=== PATIENT | female | born 2005 | race Caucasian/White ===

== ENCOUNTER 2025-02-04 04:12 | Emergency (ER) | payer BC, SELFPAY ==
[2025-02-04] VITALS (7 sets, daily range): BP systolic 93–136; BP diastolic 54–84
[2025-02-04 04:48] LABS: HCG, Serum Qualitative Screen Negative
[2025-02-04 04:50] LABS: Hematocrit 35.4 % (37.0-47.0); Hemoglobin 10.8 g/dL (12.0-16.0); Mean Corp Hgb Conc. 30.5 g/dL (33.0-37.0); Mean Corpuscular Hgb 23.7 pg (27.0-31.0); Mean Corpuscular Volume 77.8 fL (81.0-99.0); Mean Platelet Volume 13.5 fL (7.4-10.4); Platelet Count 211 10^3/uL (130-400); Red Blood Cell Count 4.55 10^6/uL (4.20-5.40); Red Cell Dist. Width 16.1 % (11.5-14.5)
[2025-02-04 04:52] LABS: Blood Urea Nitrogen 11 mg/dl (7-17); Calcium 9.2 mg/dl (8.4-10.2); Carbon Dioxide 24 mmol/L (22-30); Chloride 113 mmol/L (98-107); Glucose 99 mg/dl (70-99); Potassium 4.2 mmol/L (3.5-5.1); Sodium 145 mmol/L (135-145); eGFR > 60.00
--- NOTE | 2025-02-04 09:10 | ED.GENMED ---
History of Present Illness
General
Chief Complaint: Vomiting Blood
Source: patient
Exam Limitations: none
Time Seen by Provider: 02/04/25 08:07
Nursing documentation reviewed up to this point in time: agreed with
History of Present Illness
History of Present Illness:
see MDM
Past History
Past History
ED Past Medical History: Psychiatric
ED Past Surgical History: None
Social History
Tobacco: Non-smoker
Alcohol: Other
Drug: Other
Review of Systems
Review of Systems
Allergies reviewed?: Yes
All Other Systems: Not applicable
Phy Exam
Physical Exam
Physical Exam:
GENERAL: sleeping soundly; woken up and in no distress
EYE: pupils equal and reactive
NECK: Supple
ENT: o/p clr, mmm.
CARDIAC: Regular rate and rhythm .
LUNGS: Clear breath sounds bilaterally, no acute respiratory distress, no wheezes/rales/rhonchi
ABDOMEN: Soft, without focal tenderness, no r/g, no cvat, normal bowel sounds
NEUROLOGICAL: Alert and oriented, no focal neuro deficits
SKIN: Warm and dry, skin intact.
MUSCULOSKELETAL: No edema, well perfused. neg noah's sign
PSYCH: Normal and appropriate interaction.
Course
Orders/Labs/Results
Orders:
Orders
02/04/25 04:17
Test Result ONCE
02/04/25 04:25
Complete Blood Count/No Diff Urgent
Comprehensive Metabolic Panel Urgent
Comment: ADD
Direct Bilirubin Urgent
Comment: ADD
HCG, Serum Qualitative Screen Urgent
Lipase Urgent
Comment: ADD
02/04/25 08:50
Electrocardiogram (*1) Urgent
Reason for Study: Abdominal Pain
EKG- Treatment ONCE
02/04/25 09:10
Add On- LAB Urgent
Tests Added?: LFT, LIPASE
Abnormal Lab Results
02/04/25
04:25
Hgb 10.8 L g/dL
(12.0-16.0)
Hct 35.4 L %
(37.0-47.0)
MCV 77.8 L fL
(81.0-99.0)
MCH 23.7 L pg
(27.0-31.0)
MCHC 30.5 L g/dL
(33.0-37.0)
RDW 16.1 H %
(11.5-14.5)
MPV 13.5 H fL
(7.4-10.4)
Chloride 113 H mmol/L
(98-107)
AST 38 H U/L
(14-36)
ALT 58 H U/L
(0-35)
02/04/25 04:25
02/04/25 04:25
Vital Signs
Initial and Last Documented VS:
Initial Vital Signs
Temp Pulse Resp BP Pulse Ox
37.1 C 88 18 116/84 98
02/04/25 04:14 02/04/25 04:14 02/04/25 04:14 02/04/25 04:14 02/04/25 04:14
Last Documented Vital Signs
Temp Pulse Resp BP Pulse Ox
36.4 C 82 16 136/81 99
02/04/25 11:40 02/04/25 11:40 02/04/25 11:40 02/04/25 11:40 02/04/25 11:40
MDM/Problems Addressed
Differential Diagnosis Includes:
see MDM
MDM/Problems Addressed:
Note:
CHIEF COMPLAINT(S)
Vomiting with blood.
HISTORY OF PRESENT ILLNESS
The patient is a 20-year-old female presenting with vomiting containing blood. The onset of symptoms occurred EARLY THIS AM 3 [address] while [address] to work, necessitating pulling over due to the urge to vomit. She reports a long-standing issue with
recurrent vomiting, but this is the first episode involving blood. The vomiting was associated with a panic episode, although the exact sequence of events is unclear. The patient admits to chronic stomach pain AND HAS NEVER SEEN GI but denies any
recent illness or relation to stress.
Her last menstrual period was this month, and she has no significant medical problems. She is currently prescribed iron supplements for low hemoglobin levels. The amount of blood in the vomit was not substantial. Post-vomiting, her nausea and
burning chest pain subsided. She has been prescribed gastric acid reducers such as omeprazole in the past by her family physician but has not undergone an endoscopy.
Currently, she feels better, .
SOCIAL HISTORY
The patient works night shifts at a [employer] facility.
PHYSICAL EXAM
- Chest: Retrospective burning pain, now resolved.
abd: soft, nontender, nondistended;
no distress
Nursing notes reviewed and vital signs reviewed.
PLAN
- Recommend initiation or continuation of proton pump inhibitors, such as omeprazole, for gastric acid reduction.
- Referral to gastroenterology for further evaluation, potentially including endoscopy.
- Monitor for any further significant gastrointestinal bleeding.
- Hydration support provided with oral fluids.
- Conduct an electrocardiogram (EKG) to evaluate cardiac status.
DIFFERENTIAL DIAGNOSIS
The Differential Diagnosis includes, in no particular order and is not limited to:
1. Doron-Childs tear
2. Gastritis
3. Peptic ulcer disease
4. Gastroesophageal reflux disease (GERD)
5. Esophageal varices
6. Stress-induced gastritis
7. Medication side effect (e.g., NSAIDs)
8. Iron deficiency anemia causing mucosal fragility
9. Panic disorder with hyperventilation-related complications
10. Hiatal hernia
pt here with after noticing small amount of blood in her large volume vomit this morning
she vomits frequently after eating; says she has been todl she needs to be W/U for celiac
she thinks she is on a PPI but istn' sure
she is modstly compliant with iron for iron def anemia
on exam she looks well
was sleeping
stable vitals
no abdominal tendenress
no report of black stools
small amount of blood in the vomit visualized with photo she took appears to be low volume and likely doron childs tear
her GERD resolved
ekg normal sinus rhythm no st elevation/depression
wbc normal
hg 10.8 from11.3 a few years ago, not likely relavent to today's vomiting
LFTs and lipase not performed
will add on
po challenge and likely go home
LFTs neg
po challenge toelrated;/dch ome
*Pulse Oximetry
SaO2: 99
Patient hypoxic: no (99)
*Critical Care Note
Total Time (30-74mins, 75-104mins- exclusive of procedures): Not Applicable
ED Attending Note
-
Portions of this chart may have been created with voice recognition software.� Occasional wrong word or��sound alike� substitutions may have occurred due to the inherent limitations of voice recognition software.
Discharge Plan
Departure
Patient Disposition: Home (Routine Discharge)
Date of Disposition: 02/04/25
Time of Disposition: 10:31
Patient with high blood pressure during this ER visit?: No
Condition: Fair
Covid-19: Not Applicable
Discharge Problem:
Doron-Childs tear, Anemia, GERD (gastroesophageal reflux disease)
Instructions: Nausea and Vomiting, Adult (DC), Acid reflux and GERD in adults
Prescriptions:
New
pantoprazole [Protonix] 40 mg tablet,delayed release (DR/EC)
40 mg PO DAILY Qty: 14 0RF
No Action
oxycodone-acetaminophen 5 MG/325 MG tablet
1 tab PO Q4HPRN PRN (Reason: severe pain) Qty: 15 0RF
dicyclomine 20 mg tablet
20 mg PO QID PRN (Reason: abdominal pain) Qty: 14 0RF
Referrals:
Caitlin Boss MD [Active, Gastroenterology] - Follow up in 5-7 days
UNKNOWN - PT DOES,NOT KNOW [Family Provider]
Activity Restrictions/Additional Instructions:
Your liver enzymes are mildly elevated and they have been in the past due to fatty liver. Please avoid alcohol and try to limit your fatty foods. Have these numbers rechecked. I am concerned about your ongoing vomiting that you need to be seen by
GI doctor. I did prescribe Protonix 40 mg once a day which you should take on an empty stomach and wait 45 minutes before eating or drinking anything. If you are already on medication like this do not take this medication. Make sure to call GI
for follow-up appointment. Return to the ER for worsening vomiting, worsening blood in your vomit, weakness, severe abdominal pain or any concerns. The vomiting blood was probably a small tear in the lining of your esophagus from vomiting so hard.
Interventions
Interventions:
*Risk Screen - Suicide Last Done: 02/04/25 04:14
*General Assessment Last Done: 02/04/25 06:00
*Neglect/Abuse Screening Last Done: 02/04/25 04:14
*ED- Fall Risk Assessment Last Done: 02/04/25 06:00
*ED COVID-19 Vaccine History Last Done: 02/04/25 06:00
*Nursing Disposition Last Done: 02/04/25 11:40
RT-Upmcnk-Ouhnnajvqd Assessment Last Done: 02/04/25 11:40
ED- Cardiac Assessment Last Done: 02/04/25 11:40
ED-Psychological Assessment Last Done: 02/04/25 11:40
ED- Pulmonary Assessment Last Done: 02/04/25 11:40
Discharge Date and Time
Discharge Date/Time: 02/04/25 11:42
Print Language: [email or web address]
[2025-02-04 10:25] LABS: ALT (SGPT) 58 U/L (0-35); AST (SGOT) 38 U/L (14-36); Albumin 4.2 g/dl (3.5-5.0); Alkaline Phosphatase 55 U/L (38-126); Direct Bilirubin 0.2 mg/dl (0.0-0.4); Lipase 201 U/L (23-300); Total Bilirubin 0.4 mg/dl (0.2-1.3); Total Protein 6.7 g/dl (6.3-8.2)
== END 2025-02-04 11:42 | disposition home or self-care (01) ==
LOC: EMR 04:12
PROVIDERS: Emergency Medicine; EMERGENCY PHYSICIAN Emergency Medicine
DX: K22.6 Gastro-esophageal laceration-hemorrhage syndrome (principal); R11.2 Nausea with vomiting, unspecified; D50.9 Iron deficiency anemia, unspecified
CPT/HCPCS: 99283; 80053; 82248; 83690; 84703; 85027; 93005

== ENCOUNTER → 2025-04-17 11:11 | Outpatient (REF) | payer BC, SELFPAY | LOC: RAD 11:11 | PROVIDERS: ATTENDING PHYSICIAN Physician Assistant | DX: M79.675 Pain in left toe(s) (principal); S99.922A Unspecified injury of left foot, initial encounter | CPT/HCPCS: 73660 ==